=== PATIENT | female | born 1995 | race Caucasian/White ===

== ENCOUNTER 2017-02-28 15:33 | Emergency (ER) | payer BC, OTHER ==
[2017-02-28] MEDS ORDERED: ALBUTEROL/IPRATROPIUM 1 VIAL SOL ONE (15:48)
[2017-02-28] MEDS ORDERED: ALBUTEROL/IPRATROPIUM 1 VIAL SOL INH ONE (15:50)
[2017-02-28 16:08] VITALS: BP 115/78; TEMP 98.1
[2017-02-28] MEDS ORDERED: ALBUTEROL NEB SOL 2.5MG/3ML 1 VIAL SOL NEB ONE (16:16)
[2017-02-28] MEDS ORDERED: ALBUTEROL NEB SOL 2.5MG/3ML 1 VIAL SOL ONE (16:18)
[2017-02-28] MEDS ORDERED: PREDNISONE 20 MG TAB PO ONE (16:19)
[2017-02-28 16:21] VITALS: RESP 44
[2017-02-28] MEDS ORDERED: PREDNISONE 20 MG TAB ONE (16:23)
[2017-02-28 16:42] VITALS: PULSE 134; O2SAT 95
== END 2017-02-28 16:40 | disposition home or self-care (01) ==
LOC: ED 15:33
DX: J45.901 Unspecified asthma with (acute) exacerbation (principal)
CPT/HCPCS: 71020; 99283; J7603; J7620

== ENCOUNTER 2017-03-01 01:20 | Observation (INO) | payer BC ==
[2017-03-01] MEDS ORDERED: ALBUTEROL/IPRATROPIUM 1 VIAL SOL INH ONE ×3 (01:35→03:39)
[2017-03-01] MEDS ORDERED: ALBUTEROL/IPRATROPIUM 1 VIAL SOL ONE ×3 (01:36→03:40)
[2017-03-01] MEDS ORDERED: SOLUMEDROL 125 MG/2 ML 125 MG/2 ML PDS IV ONE (02:16)
[2017-03-01] MEDS ORDERED: SOLUMEDROL 125 MG/2 ML 125 MG/2 ML PDS ONE (02:26)
[2017-03-01 02:28] LABS: BASOPHILS % (AUTO) 0 % (0-3); EOSINOPHILS % (AUTO) 0 % (0-9); HEMATOCRIT 41 % (35-47); MEAN CORPUSCULAR HGB CONC 36.5 gm/dl (32.0-36.0); MEAN CORPUSCULAR VOLUME 82 fL (81-99); MONOCYTES % (AUTO) 5.6 % (0-12); NEUTROPHILS % (AUTO) 88.4 % (37-80)
[2017-03-01 02:43] LABS: CALCIUM 9.6 mg/dl (8.5-10.1); GLOM FILT RATE 84 mL/min (>60); MAGNESIUM 1.8 mg/dl (1.8-2.4); SODIUM 142 mMol/L (136-145)
[2017-03-01] MEDS: SODIUM CHLORIDE 0.9% FLUSH 10 ML SOL IV PRN ×2 (03:34→15:16)
[2017-03-01] MEDS ORDERED: ACETAMINOPHEN 325 MG PO ONE (03:49)
[2017-03-01] MEDS ORDERED: ACETAMINOPHEN 325 MG ONE (03:50)
[2017-03-01] MEDS ORDERED: ACETAMINOPHEN 500 MG 500 MG TAB PO PRN (08:30)
[2017-03-01] MEDS ORDERED: IBUPROFEN 600 MG TAB PO PRN (08:30)
[2017-03-01] MEDS ORDERED: ALBUTEROL NEB SOL 2.5MG/3ML 1 VIAL SOL NEB PRN (08:31)
[2017-03-01] MEDS ORDERED: DIPHENHYDRAMINE 25 MG CAP PO PRN (09:00)
[2017-03-01] MEDS: ALBUTEROL/IPRATROPIUM 1 VIAL SOL INH SCH ×3 (09:29→19:45)
[2017-03-01] MEDS: SOLUMEDROL 125 MG/2 ML 125 MG/2 ML PDS IV SCH ×3 (09:30→19:45)
[2017-03-01] MEDS ORDERED: APAP/HYDROCODONE 325/5 TAB PO PRN (15:04)
[2017-03-01] MEDS ORDERED: ONDANSETRON HCL 4 MG/2 ML SOL IV PRN (15:05)
[2017-03-01] MEDS ORDERED: LORAZEPAM 2 MG/ML SOL IV ONE (15:10)
[2017-03-01 15:29] VITALS: BP 105/62; TEMP 97.2
[2017-03-01 19:50] VITALS: RESP 26; O2SAT 96
[2017-03-01 20:01] VITALS: PULSE 100
== END 2017-03-01 20:40 | disposition short-term general hospital (02) ==
LOC: ED 01:20 → ACUTE CARE 04:52
PROVIDERS: ADMIT Family Medicine; ATTEND Family Medicine
DX: J45.909 Unspecified asthma, uncomplicated (principal); J98.2 Interstitial emphysema; Z83.6 Family history of other diseases of the respiratory system
CPT/HCPCS: 99285 ×3; 71275; 80048; 83735; 84100; 84484; 85025; 93005; 93012; 94150; 94640 ×5; 94762; J2405; J2930 ×2; Q9967; 71020; 96374; 99291; J2060; J7620

== ENCOUNTER 2017-04-13 03:08 | Emergency (ER) | payer BC ==
[2017-04-13] MEDS ORDERED: SOLUMEDROL 125 MG/2 ML 125 MG/2 ML PDS IM ONE (03:31)
[2017-04-13 03:32] VITALS: BP 120/81; PULSE 85; RESP 20; O2SAT 94
[2017-04-13] MEDS ORDERED: SOLUMEDROL 125 MG/2 ML 125 MG/2 ML PDS ONE (03:42)
[2017-04-13 03:51] LABS: BASOPHILS % (AUTO) 1 % (0-3); EOSINOPHILS % (AUTO) 7 % (0-9); HEMATOCRIT 34 % (35-47); MEAN CORPUSCULAR HGB CONC 37.3 gm/dl (32.0-36.0); NEUTROPHILS % (AUTO) 65.3 % (37-80)
[2017-04-13 03:56] LABS: MEAN CORPUSCULAR VOLUME 81 fL (81-99)
[2017-04-13 03:59] LABS: NORMAL RBCS PRESENT
[2017-04-13 04:03] LABS: CALCIUM 8.7 mg/dl (8.5-10.1); GLOM FILT RATE 120 mL/min (>60); SODIUM 139 mMol/L (136-145)
== END 2017-04-13 04:10 | disposition home or self-care (01) ==
LOC: ED 03:08
DX: J06.9 Acute upper respiratory infection, unspecified (principal); Z87.09 Personal history of other diseases of the respiratory system; Z87.39 Personal history of other diseases of the musculoskeletal system and connective tissue
CPT/HCPCS: 99283 ×3; 80048; 84484; 85025; 93005; J2930; 36415; 71010; 96372; 99284

== ENCOUNTER 2017-09-23 19:49 | Emergency (ER) | payer BC ==
[2017-09-23 19:59] VITALS: RESP 18; TEMP 97.6
[2017-09-23] MEDS ORDERED: ONDANSETRON 4 MG ODT ONE ×2 (20:16→20:20)
[2017-09-23] MEDS ORDERED: ONDANSETRON 4 MG ODT BU ONE (20:16)
[2017-09-23] MEDS ORDERED: ONDANSETRON 4 MG ODT BU PRN (20:19)
[2017-09-23 20:36] VITALS: BP 115/73; PULSE 86; O2SAT 97
== END 2017-09-23 20:41 | disposition home or self-care (01) ==
LOC: ED 19:49
DX: K52.9 Noninfective gastroenteritis and colitis, unspecified (principal)
CPT/HCPCS: 99282